=== PATIENT | male | born 2000 | race Two or more races ===

== ENCOUNTER 2024-11-29 19:17 | Emergency (ER) | payer OTHER, SELFPAY ==
[2024-11-29 19:55] VITALS: BP 120/71; PULSE 71; RESP 18; TEMP 36.8; O2SAT 98; BMI 38.3
--- NOTE | 2024-11-29 20:15 | XR_ITS ---
Examination:Right hip AP, lateral, AP pelvis 3 views Technique: Hip AP lateral, AP pelvis, 3 views Exam date and time:November 29, 20242033 hrs. Indications: Patient fell today with injury to the right hip, right hip pain. Findings: No acute right hip fracture No dislocation Left hip bones of the pelvis intact Impression: No acute hip or pelvic fracture.
--- NOTE | 2024-11-29 20:15 | XR_ITS ---
Examination: Lumbar spine 3 views Technique one AP lateral coned lateral lower lumbar spine 3 views Exam date and time: November 29, 2024 at 2033 hrs. Indications: Patient fell today with injury of the lower back, lower back pain. Findings: No acute fracture No dislocation No foreign body Impression: No acute fracture
--- NOTE | 2024-11-29 20:16 | PD.EDLOWEX ---
Lower Extremity Injury RME/HPI General Chief Complaint: Extremity Injury, Lower Stated Complaint: Fall Time Seen by Provider: 11/29/24 19:25 Arrival date/time: 11/29/24 19:17 RME / HPI RME / HPI Narrative: 24-year-old male patient came in for evaluation regarding right hip pain. Onset of symptoms few hours prior to ER visit, while working, patient fell landing on his right buttock area, resulting to pain, described as dull ache, severity moderate. Patient is able to ambulate however limping. Also complained of low back pain. Denies any LOC denies any other complaints patient is wearing helmet. Related Data Previous Rx's ?Medication ?Instructions ?Recorded ibuprofen 600 mg tablet 600 mg PO TID PRN pain #30 tabs 11/27/21 hydrocodone 5 mg-acetaminophen 325 1 tab PO BID PRN pain #10 tabs 11/05/22 mg tablet ibuprofen 800 mg tablet 800 mg PO TID PRN pain #30 tabs 11/05/22 ondansetron 4 mg disintegrating 4 mg PO Q8H PRN nausea and 11/05/22 tablet vomiting #10 tabs cyclobenzaprine 10 mg tablet 10 mg PO TID PRN muscle spasm #30 11/29/24 tabs ibuprofen 800 mg tablet 800 mg PO Q8H PRN pain #30 tabs 11/29/24 Allergies Allergy/AdvReac Type Severity Reaction Status Date / Time No Known Allergies Allergy Verified 09/14/23 10:45 Review of Systems Review of Systems Narrative Review of Systems: Review of system reviewed and within normal limits except mentioned in HPI ED Exam Narrative Physical exam: VITAL SIGNS: Reviewed. GENERAL APPEARANCE: Alert and interactive, follows commands, no acute distress, HEAD AND FACE: Non-traumatic. ENT: PERRL, pink conjunctivitis, eyelid no trauma, Mucous membrane moist. NECK: Supple, nontender, no nuchal rigidity. CHEST: No tenderness, no crepitus, no paradoxical movement, no retractions. LUNGS: Clear, well ventilated, symmetric, no rales, no wheezing, no ronchi, no stridor, good breath sounds bilaterally. HEART: Regular rate, regular rhythm, no murmur, no gallops. ABDOMEN: Soft, positive bowel sounds, nondistended, no guarding, nontender, no rebound, no masses, RECTAL: Deferred. GENITAL: Deferred. NEUROLOGICAL: Gross motor function intact sensory function intact, Appropriate for age. MUSCULOSKELETAL: low back nontender, full range of motion. EXTREMITIES: Right buttock tenderness, no bruising, no deformity no swelling, with limitation range of motion. SKIN: Color pink, dry, no rash, no lacerations, no abrasions, no contusions. LYMPHATICS: Deferred. Course Quality Measures none Orders Category Date Time Status XR hip RT w pelvis 2-3V Stat Exams 11/29/24 20:15 Completed XR lumbar spine 2-3V Stat Exams 11/29/24 20:15 Completed CYCLObenzaPRINE [Flexeril] Med 11/29/24 20:15 Discontinued 10 mg PO X1 ONE Ketorolac Inj [Toradol Inj] Med 11/29/24 20:15 Discontinued 60 mg IM X1 ONE Vital Signs Vital signs: Vital Signs Temperature 98.2 F 11/29/24 19:55 Pulse Rate 71 11/29/24 19:55 Respiratory Rate 18 11/29/24 19:55 Blood Pressure 120/71 11/29/24 19:55 Pulse Oximetry (%) 98 11/29/24 19:55 Oxygen Delivery Method Room Air 11/29/24 19:55 Extremity Injury, Lower MDM Narrative [facility] Narrative:: 24-year-old male patient came in for evaluation regarding right hip pain. Onset of symptoms few hours prior to ER visit, while working, patient fell landing on his right buttock area, resulting to pain, described as dull ache, severity moderate. Patient is able to ambulate however limping. Also complained of low back pain. Denies any LOC denies any other complaints patient is wearing helmet. X-ray of the h hip and lumbar spine came back unremarkable. Results discussed with the patient. Patient appears nontoxic and hemodynamically stable. Patient discharged home and instructed to follow-up with primary care provider in 24 to 48 hours. Instructed to return to the emergency department immediately if worsening of symptoms Patient data External records reviewed:: None Clinical information provided by:: patient Social determinants that could affect healthcare access:: none Patient has the following chronic illnesses:: Stable How is presenting disease/condition affected by chronic disease/condition?: uneffected by Evaluation data The following diagnostics were reviewed and interpreted by me:: radiology exam(s) Lab and/or radiology exams considered but not ordered:: None Interpretation Summary: See results in MDM Medications / Prescriptions Medications or Prescriptions considered but not ordered:: Plan Medication administrations:: Medication Administration History Discontinued Medications Cyclobenzaprine HCl (Cyclobenzaprine 5 Mg Tablet) 10 mg PO X1 ONE Stop: 11/29/24 20:16 Last Admin: 11/29/24 20:25 Dose: 10 mg Documented By: Ketorolac Tromethamine (Ketorolac Inj 60 Mg/2 Ml Vial) 60 mg IM X1 ONE Stop: 11/29/24 20:16 Last Admin: 11/29/24 20:28 Dose: 60 mg Documented By: Flexeril and Toradol Consultations Consultation(s) initiated? (list below): No Diagnosis Extremity Injury, Lower Differential Diagnosis: other (Low back pain, hip pain, status post fall) Most likely diagnosis given after review of the tests above:: Low back pain, hip pain, status post fall Admission Indicated Admission indicated?: not indicated Admission Request Was there a request for admission?: No Disposition Plan Disposition Plan: Discharge Discharge Attestation Discharge Attestation: The patient and all family members were given an opportunity to ask questions and understood the discharge instructions. Discharge instructions specifically effects, indications for sooner follow up or return to the emergency department, and the expected course of current diagnosis. Patient condition: Stable Discharge Plan Plan Patient Disposition: HOME (Self Care) Disposition Comment: Stable Prescriptions/Referrals Prescriptions/Med Rec: New cyclobenzaprine 10 mg tablet 10 mg PO TID PRN (Reason: muscle spasm) Qty: 30 0RF ibuprofen 800 mg tablet 800 mg PO Q8H PRN (Reason: pain) Qty: 30 0RF No Action ibuprofen 600 mg tablet 600 mg PO TID PRN (Reason: pain) Qty: 30 0RF ibuprofen 800 mg tablet 800 mg PO TID PRN (Reason: pain) Qty: 30 0RF hydrocodone-acetaminophen 5-325 mg tablet 1 tab PO BID MDD 10 PRN (Reason: pain) Qty: 10 0RF ondansetron 4 mg tablet,disintegrating 4 mg PO Q8H PRN (Reason: nausea and vomiting) Qty: 10 0RF Referrals: Mat Vasquez MD [Primary Care Provider] - In 1 week Problem List Clinical Impression: Fall, Back pain, Acute hip pain Patient/Caregiver Discharge Instructions Discharge Activity: activity as tolerated Education Materials: ED Contusion, Lower Extremity Additional Instructions: Thank you for the opportunity for serving you today. You are stable for discharged . You are advised to: Follow-up with your Worker's Comp. MD in 1 to 2 days Return to ED for worsening of symptoms Increase oral fluids Print Language: Sami Stand Alone Forms: Juanita Award Info., Patient Portal Info Letter PA/ELICIA Supervising Physician PA/ELICIA Supervising Physician: MD Fredy
[2024-11-29] MEDS: CYCLObenzaPRINE 5 MG TABLET 10 MG PO (20:25)
[2024-11-29] MEDS: KETOROLAC INJ 60 MG/2 ML VIAL IM (20:28)
== END 2024-11-29 22:25 | disposition home or self-care (01) ==
PROVIDERS: Emergency Provider Emergency Medicine; PCP Family Medicine
DX: M25.551 Pain in right hip (principal); M54.50 Low back pain, unspecified
CPT/HCPCS: 72100; 73502; 96372; 99283; J1885; A9270